=== PATIENT | female | born 1930 | race African-American/Black ===

== ENCOUNTER 2018-01-19 07:44 | Emergency (ER) | payer MEDICARE, OTHER ==
[~2018-01-19] VITALS: Ht 160 cm; Wt 49.1 kg
[~2018-01-19 07:44] MED LIST: ACET-66 PO; CALC-613 PO; ESOM20CA31 PO; FURO20 PO; GLIM2 PO; METF-960 PO; METO50 PO; SIMV-259 PO; SITA100 PO
[2018-01-19 07:58] LABS: GLUCOSE,POINT OF CARE 68 MG/DL (70-110)
[2018-01-19] MEDS ORDERED: ACETAMINOPHEN 500 MG TABLET PO ONE (10:00)
[2018-01-19 10:59] LABS: GLUCOSE,POINT OF CARE 86 MG/DL (70-110)
[2018-01-19] MEDS ORDERED: IOVERSOL 320 MG/ML 100 ML VIAL ONE (11:48)
[2018-01-19] MEDS ORDERED: SODIUM CHLORIDE 0.9% 100 ML ONE (11:48)
[2018-01-19 13:48] LABS: ANION GAP 5 mmol/L (8-16); CALCIUM, TOTAL 9.9 mg/dL (8.8-10.5); CARBON DIOXIDE 30 mmol/L (22-29); CHLORIDE 106 mmol/L (98-107); GLOMERULAR FILTR. RATE CALC > 60 mL/min (>60); GLUCOSE,RANDOM 80 mg/dL (70-110); POTASSIUM 4.2 mmol/L (3.5-5.1); SODIUM SERUM 141 mmol/L (136-145); UREA NITROGEN, BLOOD 12 mg/dL (7-18)
[2018-01-19 15:26] VITALS: BP 140/82
[2018-01-19 15:39] LABS: GLUCOSE,POINT OF CARE 63 MG/DL (70-110)
== END 2018-01-19 16:13 | disposition home or self-care (01) ==
LOC: EMS 07:45
DX: R07.81 Pleurodynia (principal); R91.1 Solitary pulmonary nodule; E11.9 Type 2 diabetes mellitus without complications; K21.9 Gastro-esophageal reflux disease without esophagitis; E78.00 Pure hypercholesterolemia, unspecified; Z98.51 Tubal ligation status; Z88.0 Allergy status to penicillin; Z88.6 Allergy status to analgesic agent; Z88.2 Allergy status to sulfonamides; Z88.1 Allergy status to other antibiotic agents; Z79.899 Other long term (current) drug therapy; Z79.84 Long term (current) use of oral hypoglycemic drugs
CPT/HCPCS: 36415; 71101; 71260; 80048; 82962; 99285; J7050; Q9967